=== PATIENT | female | born 2000 | race Caucasian/White ===

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

== ENCOUNTER 2019-12-31 08:39 | Emergency (ER) | payer SELFPAY ==
[~2019-12-31] VITALS: Ht 160 cm; Wt 59.0 kg
[2019-12-31] MEDS ORDERED: SODIUM CHLORIDE 0.9% 1,000 ML IV ONE (10:04)
[2019-12-31] MEDS ORDERED: ONDANSETRON HCL 4MG/2ML INJ IV ONE (10:15)
[2019-12-31 10:31] LABS: BASOPHILS % 0.7 % (0.0-2.0); EOSINOPHILS % 2.7 % (0.0-5.0); HEMATOCRIT. 45.3 % (36.0-48.0); HEMOGLOBIN. 15.4 g/dL (12.0-16.0); LYMPHOCYTES % 29.8 % (20.0-50.0); MEAN CORPUSCULAR HEMOGLOBIN 31.1 pg (28.0-32.0); MEAN CORPUSCULAR VOLUME 91.6 fL (81.0-99.0); MEAN PLATELET VOLUME 9.6 fl (7.4-10.4); MONOCYTES % 7.9 % (2.0-8.0); NEUTROPHILS % 58.9 % (40.0-76.0); PLATELET 254 x1000/uL (130-400); RED BLOOD CELL COUNT 4.95 mill/uL (4.2-5.4); RED CELL DISTRIBUTION WIDTH 14.6 % (11.6-14.6)
[2019-12-31 10:36] LABS: CHLORIDE 106 mEq/L (98-107)
[2019-12-31 10:40] LABS: CLARITY URINE CLEAR (CLEAR); COLOR URINE YELLOW (YELLOW); KETONES URINE NEGATIVE (NEGATIVE); LEUKOCYTE ESTERASE URINE NEGATIVE (NEGATIVE); NITRITE URINE POSITIVE (NEGATIVE); OCCULT BLOOD URINE NEGATIVE (NEGATIVE); PH URINE 7.5 (4.5-8.0); PROTEIN URINE NEGATIVE (NEGATIVE); SPECIFIC GRAVITY URINE 1.006 (1.005-1.030); UROBILINOGEN URINE 0.2 E.U./dL (0.2-1.0)
[2019-12-31 10:40] LABS: ETHANOL BLOOD < 10 mg/dL
[2019-12-31 10:51] LABS: *AMPHETAMINES SCREEN URINE NEGATIVE (NEGATIVE); *BARBITURATES SCREEN URINE NEGATIVE (NEGATIVE); *BENZODIAZEPINES SCREEN URINE NEGATIVE (NEGATIVE); METHADONE URINE SCREEN NEGATIVE (NEGATIVE); OPIATES URINE SCREEN NEGATIVE (NEGATIVE)
[2019-12-31 10:52] LABS: CANNABINOID URINE SCREEN NEGATIVE (NEGATIVE); PHENCYCLIDINE URINE SCREEN NEGATIVE (NEGATIVE)
[2019-12-31 11:07] LABS: *COCAINE SCREEN URINE PRESUMTIVE POSITIVE (NEGATIVE)
[2019-12-31 13:30] VITALS: BP 112/84
== END 2019-12-31 13:34 | disposition home or self-care (01) ==
LOC: ER 08:39
DX: F14.10 Cocaine abuse, uncomplicated (principal); F10.129 Alcohol abuse with intoxication, unspecified; M60.9 Myositis, unspecified; Y90.0 Blood alcohol level of less than 20 mg/100 ml
CPT/HCPCS: 36415; 80048; 80305; 80320; 81003; 81025; 85025; 96374; 99283; J2405; J7030; G0480

== ENCOUNTER 2022-05-17 18:37 | Emergency (ER) | payer MEDICAID ==
[~2022-05-17] VITALS: Ht 167.6 cm; Wt 60.0 kg
[2022-05-17 18:57] VITALS: BP 123/93
== END 2022-05-17 20:12 | disposition home or self-care (01) ==
LOC: ER 18:37
DX: Z00.00 Encounter for general adult medical examination without abnormal findings (principal); Z87.891 Personal history of nicotine dependence; F14.10 Cocaine abuse, uncomplicated
CPT/HCPCS: 99283

== ENCOUNTER 2023-05-29 23:40 | Emergency (ER) | payer MEDICAID ==
[~2023-05-29] VITALS: Ht 162.6 cm; Wt 73.0 kg
[2023-05-30 00:18] VITALS: TEMP 98.4; O2SAT 99
[2023-05-30 01:34] VITALS: BP 131/91; PULSE 86; RESP 16
[2023-05-30] MEDS ORDERED: IBUPROFEN 600MG TABLET PO STA (01:34)
[2023-05-30] MEDS ORDERED: TOPUD MT (01:41)
== END 2023-05-30 02:11 | disposition home or self-care (01) ==
LOC: ER 23:40
DX: R51.9 Headache, unspecified (principal); F41.9 Anxiety disorder, unspecified; J45.909 Unspecified asthma, uncomplicated; F14.10 Cocaine abuse, uncomplicated
CPT/HCPCS: 99282

== ENCOUNTER 2023-09-22 01:53 | Emergency (ER) | payer MEDICAID ==
[~2023-09-22] VITALS: Ht 162.6 cm; Wt 77.0 kg
[~2023-09-22 01:53] MED LIST: TOPUD MT
[2023-09-22 02:03] VITALS: O2SAT 97
[2023-09-22 02:25] VITALS: TEMP 97.8
[2023-09-22] MEDS: SODIUM CHLORIDE 0.9% 1,000 ML IV ONE (02:57)
[2023-09-22 03:06] LABS: BASOPHILS % 0.5 % (0.0-2.0); EOSINOPHILS % 0.9 % (0.0-5.0); HEMATOCRIT. 36.9 % (36.0-48.0); HEMOGLOBIN. 11.9 g/dL (12.0-16.0); LYMPHOCYTES % 21.9 % (20.0-50.0); MEAN CORPUSCULAR HEMOGLOBIN 26.1 pg (28.0-32.0); MEAN CORPUSCULAR HGB CONC 32.2 g/dL (31.0-37.0); MEAN CORPUSCULAR VOLUME 81.2 fL (81.0-99.0); MEAN PLATELET VOLUME 8.1 fl (7.4-10.4); MONOCYTES % 7.6 % (2.0-8.0); NEUTROPHILS % 69.1 % (40.0-76.0); PLATELET 363 x1000/uL (130-400); RED BLOOD CELL COUNT 4.55 mill/uL (4.2-5.4); RED CELL DISTRIBUTION WIDTH 17.1 % (11.6-14.6); WHITE BLOOD COUNT 12.8 x1000/uL (4.5-11.0)
[2023-09-22 03:09] LABS: CLARITY URINE CLEAR (CLEAR); COLOR URINE YELLOW (YELLOW); GLUCOSE URINE NEGATIVE (NEGATIVE); KETONES URINE NEGATIVE (NEGATIVE); LEUKOCYTE ESTERASE URINE NEGATIVE (NEGATIVE); NITRITE URINE NEGATIVE (NEGATIVE); OCCULT BLOOD URINE NEGATIVE (NEGATIVE); PH URINE 5.5 (4.5-8.0); PROTEIN URINE NEGATIVE (NEGATIVE); SPECIFIC GRAVITY URINE 1.019 (1.005-1.030); UROBILINOGEN URINE 0.2 E.U./dL (0.2-1.0)
[2023-09-22 03:12] LABS: INR 0.9; PROTHROMBIN TIME 10.4 sec (9.6-11.0)
[2023-09-22 03:13] LABS: HCG SCREEN NEGATIVE
[2023-09-22 03:22] LABS: ACETAMINOPHEN 18 ug/mL (10-30); ALANINE AMINOTRANSFERASE 37 IU/L (10-49); ALBUMIN 4.9 g/dL (3.2-4.8); ASPARTATE AMINOTRANSFERASE 21 IU/L (<34); BILIRUBIN TOTAL 0.5 mg/dL (0.1-1.0); CALCIUM 8.7 mg/dL (8.7-10.4); CARBON DIOXIDE 22 mEq/L (21-32); CHLORIDE 107 mEq/L (98-107); CREATININE 0.6 mg/dL (0.6-1.0); GLUCOSE 112 mg/dL (70-105); POTASSIUM 3.3 mEq/L (3.5-5.1); PROTEIN TOTAL 7.4 g/dL (6.0-8.3); SODIUM 139 mEq/L (136-145); UREA NITROGEN BLOOD 13 mg/dL (9-23)
[2023-09-22 03:26] LABS: *AMPHETAMINES SCREEN URINE NEGATIVE (NEGATIVE); *BARBITURATES SCREEN URINE NEGATIVE (NEGATIVE); *BENZODIAZEPINES SCREEN URINE NEGATIVE (NEGATIVE); *COCAINE SCREEN URINE NEGATIVE (NEGATIVE); CANNABINOID URINE SCREEN NEGATIVE (NEGATIVE); ECSTASY MDMA SCREEN URINE NEGATIVE (NEGATIVE); METHADONE URINE SCREEN Neg (NEGATIVE); OPIATES URINE SCREEN NEGATIVE (NEGATIVE); PHENCYCLIDINE URINE SCREEN NEGATIVE (NEGATIVE)
[2023-09-22 04:06] LABS: ETHANOL BLOOD < 10 mg/dL (<10)
[2023-09-22 06:00] VITALS: BP 108/68; PULSE 100; RESP 14
[2023-09-22] MEDS: ONDANSETRON 4MG ODT PO STA (06:29)
[2023-09-22] MEDS: MAGNESIUM/ALUMINUM HYDROXIDE/SIMETHICONE 30ML UDC PO STA (06:29)
== END 2023-09-22 10:15 | disposition home or self-care (01) ==
LOC: ER 02:06
DX: R10.9 Unspecified abdominal pain (principal); F14.90 Cocaine use, unspecified, uncomplicated
CPT/HCPCS: 80053; 80305; 81003; 80307; 80329; 80320; 84703; 85025; 85610; 36415; 93005; 96360; 96361; 99285; Q0162; J7030; Z7610; G0480

== ENCOUNTER 2023-10-20 00:31 | Emergency (ER) | payer MEDICAID ==
[~2023-10-20] VITALS: Ht 162.6 cm; Wt 64.0 kg
[2023-10-20 00:43] VITALS: TEMP 98.3; O2SAT 97
[2023-10-20 01:24] LABS: HEMATOCRIT. 35.4 % (36.0-48.0); HEMOGLOBIN. 11.8 g/dL (12.0-16.0); MEAN CORPUSCULAR HEMOGLOBIN 27.1 pg (28.0-32.0); MEAN CORPUSCULAR HGB CONC 33.3 g/dL (31.0-37.0); MEAN CORPUSCULAR VOLUME 81.6 fL (81.0-99.0); MEAN PLATELET VOLUME 8.1 fl (7.4-10.4); PLATELET 423 x1000/uL (130-400); RED BLOOD CELL COUNT 4.34 mill/uL (4.2-5.4); RED CELL DISTRIBUTION WIDTH 16.9 % (11.6-14.6); WHITE BLOOD COUNT 17.3 x1000/uL (4.5-11.0)
[2023-10-20 01:36] LABS: ALANINE AMINOTRANSFERASE 40 IU/L (10-49); ALBUMIN 5.2 g/dL (3.2-4.8); ASPARTATE AMINOTRANSFERASE 27 IU/L (<34); BILIRUBIN TOTAL 0.4 mg/dL (0.1-1.0); CALCIUM 9.3 mg/dL (8.7-10.4); CARBON DIOXIDE 19 mEq/L (21-32); CHLORIDE 108 mEq/L (98-107); CREATININE 0.7 mg/dL (0.6-1.0); GLUCOSE 132 mg/dL (70-105); PROTEIN TOTAL 8.7 g/dL (6.0-8.3); SODIUM 138 mEq/L (136-145); UREA NITROGEN BLOOD 12 mg/dL (9-23)
[2023-10-20 01:41] LABS: HCG SCREEN NEGATIVE
[2023-10-20 01:51] LABS: DIFFERENTIAL COMMENT 1
[2023-10-20 01:52] LABS: PLATELET ESTIMATE NORMAL
[2023-10-20] MEDS: ONDANSETRON 4MG ODT PO ONE (02:08)
[2023-10-20 02:29] LABS: CLARITY URINE CLEAR (CLEAR); COLOR URINE YELLOW (YELLOW); GLUCOSE URINE NEGATIVE (NEGATIVE); KETONES URINE 1+ (NEGATIVE); LEUKOCYTE ESTERASE URINE 1+ (NEGATIVE); NITRITE URINE NEGATIVE (NEGATIVE); OCCULT BLOOD URINE 3+ (NEGATIVE); PH URINE 5.5 (4.5-8.0); PROTEIN URINE TRACE (NEGATIVE); SPECIFIC GRAVITY URINE 1.016 (1.005-1.030); UROBILINOGEN URINE 0.2 E.U./dL (0.2-1.0)
[2023-10-20] MEDS: SODIUM CHLORIDE 0.9% 1,000 ML IV NR (02:55)
[2023-10-20] MEDS: DIPHENHYDRAMINE 50MG/ML VIAL IV NR (03:12)
[2023-10-20] MEDS: FAMOTIDINE 20MG/2ML VIAL IV NR (03:12)
[2023-10-20] MEDS: ONDANSETRON HCL 4MG/2ML INJ IV NR (03:13)
[2023-10-20 03:17] LABS: WBC URINE NONE SEEN /hpf (0-2)
[2023-10-20 03:18] LABS: BACTERIA URINE NONE SEEN; RBC URINE 15-25 /hpf (0-2); SQUAMOUS EPITHELIAL CELL URINE FEW /lpf (RARE/1+)
[2023-10-20] MEDS ORDERED: DIPH25CA83 MT (04:29)
[2023-10-20 04:45] VITALS: BP 124/72; PULSE 98; RESP 16
== END 2023-10-20 04:46 | disposition home or self-care (01) ==
LOC: ER 00:31
DX: R11.10 Vomiting, unspecified (principal); T78.40XA Allergy, unspecified, initial encounter; F14.10 Cocaine abuse, uncomplicated; X58.XXXA Exposure to other specified factors, initial encounter
CPT/HCPCS: 99284; 96374; 96361; 96375; 80053; 81003; 84703; 83690; 85025; 36415; Q0162; J1200; J3490; J2405